=== PATIENT | male | born 1985 | race African-American/Black ===

== ENCOUNTER 2020-10-12 14:25 | Inpatient (IN) | payer MEDICAID ==
[~2020-10-12] VITALS: Ht 180.3 cm; Wt 68.0 kg
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
[2020-10-12 15:40] LABS: BASO % 1 % (0-3); EOS % 0 % (0-3); HEMATOCRIT 44.8 % (39.0-53.0); HEMOGLOBIN 15.1 g/dL (13.0-17.5); LYMPH # 2.1 x10^3/uL (1.0-4.8); LYMPH % 39 % (24-48); MEAN CORPUSCULAR HEMOGLOBIN 32 pg (25-35); MEAN CORPUSCULAR HGB CONC 34 g/dL (31-37); MEAN CORPUSCULAR VOLUME 96 fL (79-100); MONO # 0.4 x10^3/uL (0.0-1.1); MONO % 7 % (0-9); NEUT # 2.9 x10^3uL (1.8-7.7); NEUT % 53 % (31-73); PLATELET COUNT 310 x10^3/uL (140-400); RED BLOOD COUNT 4.66 x10^6/uL (4.30-5.70); RED CELL DISTRIBUTION WIDTH 14.1 % (11.5-14.5); WHITE BLOOD COUNT 5.4 x10^3/uL (4.0-11.0)
[2020-10-12 15:43] LABS: ANION GAP 8 (6-14); BLOOD UREA NITROGEN 11 mg/dL (8-26); BUN/CREATININE RATIO 12 (6-20); CALCIUM 9.3 mg/dL (8.5-10.1); CARBON DIOXIDE 30 mmol/L (21-32); CHLORIDE 105 mmol/L (98-107); CREATININE 0.9 mg/dL (0.7-1.3); GFR 115.5; GLUCOSE 99 mg/dL (70-99); SODIUM 143 mmol/L (136-145)
[2020-10-12 15:50] LABS: BILIRUBIN,URINE NEG (NEG); CLARITY,URINE CLEAR; COLOR,URINE YELLOW; GLUCOSE,URINE NEG (NEG); NITRITE,URINE NEG (NEG); UROBILINOGEN,URINE 0.2 mg/dL (0.2 mg/dL)
[2020-10-12 15:51] LABS: BACTERIA,URINE 0 /HPF (0-FEW); RBC,URINE 0 /HPF (0-2); WBC,URINE 0 /HPF (0-4)
--- NOTE | 2020-10-12 15:51 | EKG ---
[address] [address] Test Date: 2020-10-12 Test Time: 14:50:45 Pat Name: TIARA GALAVIZ Department: Room: Gender: M Credit Correspondence Clerk: JOEL : 1985 Requested By: ELINA GUSTAFSON Order Number: [id number] Reading MD: Measurements Intervals [place] Rate: 76 P: 38 SC: 142 QRS: 77 QRSD: 90 T: 34 QT: 364 QTc: 414 Interpretive Statements SINUS RHYTHM NO SPECIFIC ECG ABNORMALITIES RI6.02 No previous ECG available for comparison
[2020-10-12 15:59] LABS: ALBUMIN 3.5 g/dL (3.4-5.0); ALK PHOS 85 U/L (46-116); ALT (SGPT) 30 U/L (16-63); AST (SGOT) 14 U/L (15-37); MAGNESIUM 1.9 mg/dL (1.8-2.4); TOTAL BILIRUBIN 0.3 mg/dL (0.2-1.0)
[2020-10-12] MEDS ORDERED: IV NORMAL SALINE 1,000ML 1,000 ML IV ONE (16:45)
[2020-10-12] MEDS ORDERED: ONDANSETRON PF 4 MG/2 ML VIAL. IVP PRN (17:00)
[2020-10-12 18:00] VITALS: BP 134/87
[2020-10-12] MEDS ORDERED: GABA800T5 PO (18:17)
[2020-10-12] MEDS ORDERED: HYDR25TA PO (18:17)
[2020-10-12] MEDS ORDERED: BACL20TA PO (18:17)
[2020-10-12] MEDS ORDERED: SERT-268 PO (18:17)
[2020-10-12] MEDS: IV NORMAL SALINE 1,000ML 1,000 ML IV SCH (20:19)
[2020-10-12] MEDS: LORazepam 1 MG TABLET PO PRN (21:35)
[2020-10-12] MEDS: GABAPENTIN 400 MG CAPSULE. PO SCH (21:35)
[2020-10-12] MEDS: BACLOFEN 20 MG TABLET PO SCH (21:36)
[2020-10-13] MEDS: traMADol 50 MG TABLET PO PRN ×2 (01:29→11:31)
[2020-10-13] MEDS: IV NORMAL SALINE 1,000ML 1,000 ML IV SCH ×2 (03:00→12:55)
[2020-10-13] MEDS: LORazepam 1 MG TABLET PO PRN ×3 (06:21→19:47)
[2020-10-13 06:38] VITALS: BP 114/76
--- NOTE | 2020-10-13 06:39 | NUR ---
PT admitted for dehydration and medical clearance for rehab. PT requesting multiple snacks throughout night, independent feeder, tolerated well.
[2020-10-13] MEDS: GABAPENTIN 400 MG CAPSULE. PO SCH ×3 (08:49→19:47)
[2020-10-13] MEDS: SERTRALINE 50 MG TABLET. PO SCH (08:49)
[2020-10-13] MEDS: BACLOFEN 20 MG TABLET PO SCH ×3 (08:49→19:47)
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
[2020-10-13] MEDS: hydrOXYzine HCL 25 MG TABLET PO PRN (11:30)
[2020-10-13 12:36] VITALS: BP 116/80
[2020-10-13 15:14] VITALS: BP 128/72
--- NOTE | 2020-10-13 17:28 | NUR ---
Pt awaiting rehab placement. After speaking with case management, the patient should discharge to [facility] on Friday or Friday. Pt very needy and land conservation specialist light constantly throughout day requesting unlimited snacks, coffee and music playlists on his phone. Pt up with PT/OT and walked 50 ft with walker, gait belt and assist x2. Pt showered, hair washed, justina care, mouth care and lotion applied. Linens changed as well. Will continue to monitor. CC, RN
[2020-10-13 19:00] VITALS: BP 148/94
[2020-10-13] MEDS: TEMAZEPAM 15 MG CAPSULE PO PRN (21:11)
[2020-10-14] MEDS: LORazepam 1 MG TABLET PO PRN ×3 (03:04→18:22)
--- NOTE | 2020-10-14 04:54 | NUR ---
Pt rested through much of shift. PRNs given, see chart. Able to hold urinal, cups with minimal assistance (placement within reach and/or adding or removing lids, etc). Pt I&O as noted in chart. Did notice on assessment calloused/corn areas on bilat feet, heels and lateral aspect of feet near toes.
[2020-10-14 06:30] VITALS: BP 123/92
[2020-10-14] MEDS: traMADol 50 MG TABLET PO PRN (09:24)
[2020-10-14] MEDS: SERTRALINE 50 MG TABLET. PO SCH (09:24)
[2020-10-14] MEDS: BACLOFEN 20 MG TABLET PO SCH ×3 (09:24→20:51)
[2020-10-14] MEDS: GABAPENTIN 400 MG CAPSULE. PO SCH ×3 (09:24→20:51)
[2020-10-14 11:48] VITALS: BP 127/87
[2020-10-14] MEDS ORDERED: ACETAMINOPHEN 500 MG TABLET PO PRN (12:30)
[2020-10-14] MEDS: TEMAZEPAM 15 MG CAPSULE PO PRN (14:47)
--- NOTE | 2020-10-14 16:28 | NUR ---
Over course of the shift, patient has had increased anxiety and desire to have RN in room. Patient continuously expressing concerns about being in hospital, unaware of boundaries related to unit policies and procedures regarding doors/curtains being open. Will continue to reinforce with patient policies and procedures and let patient know that this RN can't be bedside all shift due to other patients needs. Patient also expressed desire for anti-depressive medication. Patient already on Zoloft per MD, patient has been taking PRN anxiety medications as scheduled with little to no relief. Patient unable to sleep as well. Will continue to critically monitor.
--- NOTE | 2020-10-14 17:22 | NUR ---
Patient had called RN into room. Patient states "There are cameras in here." Patient reassured that there are no cameras in the patient's room and house steward/stewardess notified.
[2020-10-14 19:30] VITALS: BP 152/102
[2020-10-14] MEDS: ALPRAZolam 0.5 MG TABLET PO PRN (21:06)
--- NOTE | 2020-10-14 22:02 | NUR ---
Patient became agitated this evening when told his door needed to remain closed per policy; patient demanded to speak to a "facility maintenance supervisor." Nursing facility maintenance supervisor spoke with patient and confirmed that his door should remain shut. Patient became increasingly angry, accusing staff of "ganging up" on him and making false accusations. Patient states he was "trying to use the phone and you all called the vendor representatives on me." Reminded patient that he demanded to speak to the facility maintenance supervisor and that I happily assisted him with his phone when asked. Patient continued to make accusations against the staff that he was being "targeted," and requested that we leave his room at that time.
--- NOTE | 2020-10-14 22:09 | NUR ---
Patient demanded that I call Dr Raymond to request anxiety medication. Call placed to Dr Raymond, orders received.
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
[2020-10-15] MEDS: LORazepam 1 MG TABLET PO PRN ×4 (00:01→23:13)
--- NOTE | 2020-10-15 00:17 | NUR ---
Patient has been using urinal with assistance only needed to empty it throughout the day. Patient told ZEENAT (Sarah) that he needed her to put his penis in the urinal because his "fingers were numb." Due to prior inappropriate behavior ZEENAT was not comfortable performing this task and asked me to assist patient. Patient became angry stating "this is bullshit! How would you like it if I just piss the bed and you have to clean it up?" Patient then proceeded to use the urinal independently without difficulty and I emptied it for him.
[2020-10-15] MEDS: ALPRAZolam 0.5 MG TABLET PO PRN ×3 (03:26→20:47)
[2020-10-15] MEDS: GABAPENTIN 400 MG CAPSULE. PO SCH ×3 (10:51→20:47)
[2020-10-15] MEDS: BACLOFEN 20 MG TABLET PO SCH ×3 (10:51→20:47)
[2020-10-15] MEDS: SERTRALINE 50 MG TABLET. PO SCH (10:51)
[2020-10-15 11:48] VITALS: BP 117/79
--- NOTE | 2020-10-15 13:00 | NUR ---
pt asked this nurse to open his curtain because he "feels like it's too quiet out there and that scares me because I wonder what everyone is doing." Pt states he thinks people are out to get him and that we are planning something against him.
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
--- NOTE | 2020-10-15 18:29 | NUR ---
pt shaved his face at bedside. pt sheets are changed and pt is sitting in chair eating dinner. will JASMYNE
[2020-10-15 19:00] VITALS: BP 93/46
[2020-10-15] MEDS: TEMAZEPAM 15 MG CAPSULE PO PRN (20:47)
[2020-10-15] MEDS: traMADol 50 MG TABLET PO PRN (23:13)
[2020-10-16] MEDS: hydrOXYzine HCL 25 MG TABLET PO PRN ×2 (01:35→14:18)
[2020-10-16] MEDS: ALPRAZolam 0.5 MG TABLET PO PRN ×2 (02:50→14:18)
--- NOTE | 2020-10-16 02:57 | PN ---
DATE: 10/15/2020 SUBJECTIVE: He is comfortable. He had significant issues regarding behavior with the nursing staff. They had to set boundaries and in fact bring in security. He has no new complaints this morning. OBJECTIVE FINDINGS: VITAL SIGNS: Blood pressure is 152/102. He is afebrile. Oxygen saturation 98% on room air. HEENT: Head is without trauma. Pupils are reactive. Sclerae are nonicteric. Oropharynx is clear. NECK: Supple. LUNGS: Clear with good breath sounds. CARDIOVASCULAR: Regular heart tones. ABDOMEN: Soft. EXTREMITIES: Shows spastic paraparesis. ASSESSMENT: 1. This 34-year-old gentleman cannot care for himself at home. He has quadriplegia. 2. Paraparesis. 3. Underlying chronic pain syndrome. PLAN: 1. Continue home meds. 2. Diet as tolerated. 3. Await placement. His father had been a youtuber. He is unable to care for him at this time. HAZEL HILTON MD DR: ARPAN/rosa JOB#: [id number] / [id number]
--- NOTE | 2020-10-16 05:25 | NUR ---
Pt awake in chair watching TV at change of shift. Pt A&Ox4, calm but irritable at times and expressed frustrations about current situation. Talked extensively with pt about concerns and feelings of abandonment by family and friends, pt thank staff for conversation. Pt assisted back into bed x2 assist. Pt read book in bed for about an hour. Pt was independent with snacks and drinks just needed assistance with opening packaging and removing lids if items were placed within his reach. Pt slept during night in about 2 hour increments then would wake up asking for snack/drinks and any PRN medication he could have. Pt was able to use urinal independently during shift, just needed emptying.
[2020-10-16 06:55] VITALS: BP 112/79
[2020-10-16] MEDS: BACLOFEN 20 MG TABLET PO SCH ×2 (11:03→13:45)
[2020-10-16] MEDS: LORazepam 1 MG TABLET PO PRN (11:03)
[2020-10-16] MEDS: SERTRALINE 50 MG TABLET. PO SCH (11:03)
[2020-10-16] MEDS: GABAPENTIN 400 MG CAPSULE. PO SCH ×2 (11:04→13:45)
--- NOTE | 2020-10-16 13:40 | NUR ---
pt was accepted at [facility] rehab, they have a bed for him today. Report was called to Melissa JOSEPH. Pt is awaiting transport.
--- NOTE | 2020-10-16 17:48 | PN ---
DATE: 10/16/2020 SUBJECTIVE: No new complaints. He is up and ambulating with assistance. He is able to transfer. He has limited function of arms with partial paraparesis. OBJECTIVE FINDINGS: VITAL SIGNS: Blood pressure this morning is 112/79 mmHg, pulse is 58 and regular. He is afebrile. Oxygen saturation 99% on room air. HEENT: Head is without trauma. Pupils are reactive. Sclerae nonicteric. Oropharynx clear. NECK: Supple. LUNGS: Clear. CARDIOVASCULAR: Showed regular heart tones. ABDOMEN: Soft. EXTREMITIES: Showed spastic paraparesis. ASSESSMENT: 1. A 34-year-old gentleman, quadriplegic, cannot care for himself. 2. Paraparesis. 3. Underlying chronic pain syndrome. PLAN: 1. Continue home meds. 2. Diet as tolerated. 3. We are awaiting placement. HAZEL HILTON MD DR: ARPAN/rosa JOB#: [id number] / [id number]
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
== END 2020-10-16 14:40 | DRG 53 ==
LOC: ER 14:25 → ICU 16:46 → ER 17:44 → OBSVTOIN 10-13 19:40
PROVIDERS: ADMIT Hospitalist; ATTEND Hospitalist
DX: G82.50 Quadriplegia, unspecified (principal); E86.0 Dehydration; F41.9 Anxiety disorder, unspecified; G89.4 Chronic pain syndrome; F12.10 Cannabis abuse, uncomplicated; F14.10 Cocaine abuse, uncomplicated; R25.2 Cramp and spasm; Z20.822 Contact with and (suspected) exposure to COVID-19; Z87.891 Personal history of nicotine dependence
CPT/HCPCS: 36415; 80053; 81001; 82553; 83735; 84484; 85025; 87426; 93005; 96360; G0378; G0379; U0003; U0005; 97110; 97116; 97530; 97535; 99285-25; J7030